=== PATIENT | male | born 1990 | race African-American/Black ===

== ENCOUNTER 2016-12-25 11:51 | Emergency (ER) | payer SELFPAY ==
[~2016-12-25] VITALS: Ht 165.1 cm; Wt 60.0 kg
[2016-12-25 11:54] VITALS: BP 124/80
== END 2016-12-25 13:36 | disposition home or self-care (01) ==
LOC: ED 13:10
DX: S90.822A Blister (nonthermal), left foot, initial encounter (principal); S90.821A Blister (nonthermal), right foot, initial encounter; B07.0 Plantar wart; X58.XXXA Exposure to other specified factors, initial encounter; Y93.89 Activity, other specified; Y99.8 Other external cause status; Y92.89 Other specified places as the place of occurrence of the external cause; Z59.0 Homelessness
CPT/HCPCS: 99282